=== PATIENT | female | born 1985 | race Caucasian/White ===

== ENCOUNTER 2022-07-19 19:02 | Emergency (ER) | payer OTHER, MEDICAID ==
[~2022-07-19] VITALS: Ht 175.3 cm; Wt 117.9 kg
[2022-07-19] MEDS ORDERED: ZOLOFT25 MG PO (19:11)
[2022-07-19] MEDS ORDERED: VYVANSE10 MG PO (19:11)
--- OUTSIDE RECORDS SUMMARY | 2022-07-19 19:46 | XMS ---
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 [facility] has no Care Guidelines for this patient. [employer] VISIT COUNT (12 MO.) 1 DOMINIC Perez TOTAL 1 NOTE: Visits indicate total known visits. ED/C VISIT TRACKING (12 MO.) 07/19/2022 19:02 DOMINIC [facility] OR TYPE: Emergency COMPLAINT: - SEIZURE INPATIENT VISIT TRACKING (12 MO.) No inpatient visits to display in this time frame [email or web address]
[2022-07-20 00:35] VITALS: BP 120/68
--- NOTE | 2022-07-21 21:33 | EKG ---
[facility] [address] [facility] [place] [id number] Signed Normal sinus rhythm Normal ECG No previous ECGs available Confirmed by Gillian Kenny MD () on 07/21/2022 9:33:39 PM Electronically Signed By: GILLIAN KENNY MD 07/21/222132 PATIENT NAME: HAZEL FRIEND Electrocardiogram DATE OF : 87 PHYSICIAN: GILLIAN KENNY MD REPORT #: [id number] REPORT IS CONFIDENTIAL AND NOT TO BE RELEASED WITHOUT AUTHORIZATION
== END 2022-07-20 00:34 | disposition short-term general hospital (02) ==
LOC: ED 19:02
DX: R56.9 Unspecified convulsions (principal); R93.89 Abnormal findings on diagnostic imaging of other specified body structures; Z88.5 Allergy status to narcotic agent; Z88.8 Allergy status to other drugs, medicaments and biological substances; Z79.899 Other long term (current) drug therapy; Z20.822 Contact with and (suspected) exposure to COVID-19
CPT/HCPCS: 36415; 70450; 71045; 71250; 80053; 81003; 85025; 85610; 87502; 93005; 93010; 96361; 96374; 96375; 99285-25; C9803; J1100; J1200; J1610; J1953; J2405; J2765; J3030; J7121; U0003